=== PATIENT | male | born 1935 | race Caucasian/White ===

== ENCOUNTER → 2018-07-01 00:44 | Outpatient (CLI) | payer MEDICARE, SELFPAY ==
--- NOTE | 2018-07-01 09:46 | DI.REPORT_ITS ---
SYMPTOMS/DIAGNOSIS: MULTINODULAR GOITER, E04.2 THYROID ULTRASOUND: Thyroid ultrasound was performed according to the usual protocol. The right thyroid lobe measures 44 x 20 x 23 mm and left thyroid lobe measures 44 x 18 x 20 mm. The thyroid parenchyma is markedly heterogeneous with numerous nodules present bilaterally. The largest nodules are 23 mm nodule of the mid pole of the right thyroid lobe and a 18 mm in diameter right lower pole thyroid nodule, these appear grossly unchanged from previous study of 06/16/16. CONCLUSION: Findings consistent with multinodular goiter, stable appearance of the largest nodules since June 2016 is noted.
== END ==
PROVIDERS: PCP Emergency Medicine; Visit Provider Otolaryngology
DX: E04.2 Nontoxic multinodular goiter (principal)
CPT/HCPCS: 76536

== ENCOUNTER 2018-10-25 13:03 | Outpatient (CLI) | payer MEDICARE, SELFPAY ==
--- NOTE | 2018-10-25 13:08 | DI.RAD_ITS ---
SYMPTOM/DIAGNOSIS: BACK PAIN, M54.9, DORSALGIA LUMBAR SPINE: Comparison is made with 04/12/15. The exam is limited by overlying stool and bowel gas on the AP and oblique views. There is a stable moderate to severe compression fracture of T 12. There is a stable degenerative scoliosis. No new compression fractures are seen. Degenerative disc changes and facet degenerative changes are again noted. There has been no significant change. The aorta is calcified and normal in diameter. A pacemaker and gallstones are noted. There has been a previous lower anterior abdominal wall hernia repair. IMPRESSION: Stable T 12 compression fracture. Stable severe degenerative changes and scoliosis of the lumbar spine.
[2018-10-25 13:27] LABS: Abs Immature Grans 0.01 k/cumm (0.0-0.09); Absolute Basophil Count 0.01 k/cumm (0.0-0.2); Absolute Eosinophil Count 0.12 k/cumm (0.0-0.7); Absolute Lymphocyte Count 1.63 k/cumm (1.2-3.4); Absolute Monocyte Count 0.76 k/cumm (0.11-0.7); Absolute Neutrophil Count 4.75 k/cumm (1.2-6.7); Basophils % 0.1; Eosinophils % 1.6; HCT 40.2 % (40.0-50.0); HGB 13.4 g/dL (13.5-17.5); Immature Grans % 0.1; Lymphocytes % 22.4; Mean Corp. HGB Concentration 33.3 g/dL (32.0-36.0); Mean Corpuscular Hemoglobin 30.7 pg (27.0-33.0); Mean Platelet Volume 9.7 fL (8.0-11.0); Monocytes % 10.4; Neutrophils % 65.4; Platelet Count 290 x1000/uL (130-400); RBC 4.37 m/cumm (4.50-6.00); RBC Distribution Width 13.4 % (11.8-14.1); White Blood Cell Count 7.28 k/cumm (4.4-10.8)
[2018-10-25 14:22] LABS: ALT 22 U/L (12-78); AST 23 U/L (15-37); Albumin 3.7 g/dL (3.4-5.0); Alkaline Phosphatase 115 U/L (46-116); Anion Gap 7.4 mmol/L (3-11); BUN 23 mg/dL (7-18); Bilirubin, Total 0.2 mg/dL (0.2-1.0); CO2 30.6 mmol/L (21.0-32.0); CREATININE 1.02 mg/dL (0.70-1.30); Calcium 9.2 mg/dL (8.5-10.1); Chloride 101 mmol/L (98-107); Glucose 89 mg/dL (70-100); Potassium 3.7 mmol/L (3.5-5.1); Sodium 139 mmol/L (136-145); Total Protein 7.2 g/dL (6.4-8.2)
== END 2018-10-25 13:23 ==
PROVIDERS: PCP Emergency Medicine; Visit Provider Internal Medicine
DX: M54.5 Low back pain (principal); M51.36 Other intervertebral disc degeneration, lumbar region; M48.54XD Collapsed vertebra, not elsewhere classified, thoracic region, subsequent encounter for fracture with routine healing
CPT/HCPCS: 80053; 72110; 85025

== ENCOUNTER → 2018-11-23 09:54 | Outpatient (BNVA) | payer MEDICARE, SELFPAY | PROVIDERS: PCP Emergency Medicine; Visit Provider Nurse Practitioner Family | DX: I49.5 Sick sinus syndrome (principal); E78.5 Hyperlipidemia, unspecified; I10 Essential (primary) hypertension; Z45.02 Encounter for adjustment and management of automatic implantable cardiac defibrillator | CPT/HCPCS: 93280; 99213 ==

== ENCOUNTER → 2019-01-17 10:27 | Outpatient (BNVA) | payer MEDICARE, SELFPAY | PROVIDERS: PCP Emergency Medicine; Referring Provider Emergency Medicine; Visit Provider Surgery | DX: L72.3 Sebaceous cyst (principal); L08.9 Local infection of the skin and subcutaneous tissue, unspecified; I10 Essential (primary) hypertension | CPT/HCPCS: 99211; 99214 ==

== ENCOUNTER 2019-01-21 06:36 | Day surgery (SDC) | payer MEDICARE, SELFPAY ==
[2019-01-21 07:33] VITALS: BP 156/104; PULSE 87; RESP 16; TEMP 36.7; O2SAT 99
--- NOTE | 2019-01-21 09:20 | SKI_PTH ---
PATIENT: NITESH MONTANA LOC: [facility] U#:[id number] AGE/SX: 83/M ROOM: RE01/21/[address]: Starla Felix : 1935 BED: DIS: 01/21/2019 SPEC #: [id number] RECD: 01/21/19 12:58 STATUS: LOTTIE REQ #: [id number] MENDOZA: 01/21/19 09:[address]: Starla Felix DEPT: Surgical Specimen RECD BY: Janelle Malik ENTERED: 01/21/19 12:59 SP TYPE: BREA CARY DR: Jaime Higgins DO Tissues: 1 - SKIN CYST/TAG/DEBRIDEMENT Procedures: SKIN BIOPSY LEVEL 3 Comments: [id number]
[2019-01-21] MEDS: Lidocaine 1% Multi-Dose 50 ML VIAL (09:43)
--- NOTE | 2019-01-27 19:30 | ROE_ITS ---
DATE OF PROCEDURE: January 21, 2019 PREOPERATIVE DIAGNOSIS: Sebaceous cyst x2, infected sebaceous cyst x1. POSTOPERATIVE DIAGNOSIS: Same. PROCEDURE: Excision of cysts x3. SURGEON: Starla Felix D.O. ANESTHESIA: Local. ESTIMATED BLOOD LOSS: 10 cc. COMPLICATIONS: The patient tolerated the procedure well without complication. HISTORY: Mr. Estrada is an 83-year-old male seen at the request of Dr. Higgins regarding sebaceous cysts x3. One of them is infected, the one near the left shoulder, and he is here today for removal. Informed consent was obtained, explaining the risks and benefits of the procedure including, but not limited to, bleeding, infection, pneumonia, blood clots, needing to do packing, and needing to heal by secondary intent. The patient was marked in Preop. He agreed to surgery. He did receive preoperative antibiotics and will go home on antibiotics. The one on the left shoulder is red and inflamed. PROCEDURE: The patient was brought to the Procedure Room and placed in the supine position. A time-out was performed. He was prepped and draped in the usual sterile fashion using Betadine scrub solution. One percent lidocaine with epinephrine was used for local anesthetization. The posterior back lesion nearest to the right shoulder was attended to first. This was anesthetized with 10 cc of local. A #12 blade was used to make a 1-inch incision over the lesion. The lesion was dissected out. This lesion was 1.5 x 1.5 inches. It was dissected out completely. The capsule was removed. It was irrigated. The deep tissue was approximated with #3-0 Vicryl and the skin was approximated with #3-0 nylon in an interrupted fashion. There was a lesion in the middle that was 1 x 1 in. These lesion was attended to in the same fashion. It was again closed with #3-0 nylon sutures and #3-0 Vicryl in the deep tissue. The lesion on the posterior back nearest to the left shoulder was infected. This lesion was opened up. There was a little bit of purulent drainage. The cyst was dissected out and there was a small bit of necrotic tissue that was excised as well. In all of the cysts all of the capsule was removed and all nonviable tissue was removed. This, again, was copiously irrigated. It was closed proximally and distally and the center portion was left open and packed with a gauze. Sterile compression dressings were applied. The patient tolerated the procedure well and was transferred to the Recovery Room in stable condition. The patient does have a friend who can help him out doing dressings changes at home. The packing will need to be removed in 24 hours. He can just put gauze over the wounds and he does not have to pack it any further. He will be discharged home with a prescription for Ultram and a prescription for clindamycin. He was given instructions in wound care and activity. I will see him back on Thursday in follow-up. Thank you for allowing me to participate in the care of this patient. cc: Jaime Higgins D.O.
== END 2019-01-21 10:53 | disposition home or self-care (01) ==
PROVIDERS: PCP Emergency Medicine; Visit Provider Surgery
PROC: (CPT 11403; principal; 2019-01-21 09:15)
DX: L72.3 Sebaceous cyst (principal); L08.89 Other specified local infections of the skin and subcutaneous tissue
CPT/HCPCS: 11403 ×2; 12032; 88304

== ENCOUNTER → 2019-01-24 15:29 | Outpatient (BNVA) | payer MEDICARE, SELFPAY | PROVIDERS: PCP Emergency Medicine; Referring Provider Emergency Medicine; Visit Provider Surgery | DX: L72.3 Sebaceous cyst (principal); L08.89 Other specified local infections of the skin and subcutaneous tissue ==

== ENCOUNTER → 2019-01-31 15:28 | Outpatient (BNVA) | payer MEDICARE, SELFPAY | PROVIDERS: PCP Emergency Medicine; Referring Provider Emergency Medicine; Visit Provider Surgery | DX: Z48.817 Encounter for surgical aftercare following surgery on the skin and subcutaneous tissue (principal); L72.3 Sebaceous cyst; Z48.02 Encounter for removal of sutures; I10 Essential (primary) hypertension ==

== ENCOUNTER 2019-03-01 13:12 | Inpatient (IN) | payer MEDICARE, SELFPAY ==
[2019-03-01] VITALS (37 sets, daily range): BP systolic 115–154; BP diastolic 55–123; PULSE 85–118; RESP 16–32; TEMP 36.3–37.1; O2SAT 91–100
--- NOTE | 2019-03-01 13:19 | W.ED.GENAD ---
Discharge Plan Disposition Patient Disposition: [facility] INPATIENT Condition: Fair Discharge Details Chief Complaint: GenMedical Clinical Impression: CAP (community acquired pneumonia) Primary Care Provider: Jaime Higgins ED Provider: Hernan Sanchez [place] Meds and New Rx's Prescriptions: No Action cyclobenzaprine 7.5 mg tablet 7.5 mg PO TID Qty: 60 RF: 3 docusate sodium [Colace] 100 MG capsule 2 cap PO DAILY Qty: 180 RF: 4 multivitamin 1 EACH capsule 1 ea PO DAILY RF: 0 magnesium citrate 100 MG tablet 3 tab PO DAILY Qty: 450 RF: 4 TYLENOL ARTHRITIS 650 MG TABLET.ER 650 mg PO DAILY PRN RF: 0 aspirin 325 MG tablet 325 mg PO DAILY RF: 0 pravastatin [Pravachol] 20 MG tablet 20 mg PO DAILY Qty: 90 RF: 3 sildenafil [Viagra] 100 MG tablet 0.5 tab PO PRN Qty: 12 RF: 4 amlodipine 10 MG tablet 10 mg PO DAILY Qty: 90 RF: 3 hydrochlorothiazide 25 mg tablet 25 mg PO DAILY Qty: 90 RF: 4 lisinopril 20 mg tablet 20 mg PO DAILY Qty: 90 RF: 4 hydrocodone-acetaminophen [[place]] 5-325 mg tablet 1 tab PO Q4H PRN (Reason: pain) Qty: 10 RF: 0 Medical Decision Making Patient here with complaint of general weakness, lack of appetite, fatigue and cough. He is mildly tachycardic and mucous membranes are a little dry. He reports not eating and drinking well over the last few days. Lungs are clear and saturations are normal. Belly is benign. Neurologically somewhat difficult to follow but I think it is due to his word finding/speech problems have been documented in the primary care's notes. He otherwise is non-focal. EKG with nothing acute. We will place an IV and give a liter of fluid. Will check a chest x-ray, urinalysis, laboratory studies. Patient's laboratory studies with a white count of 15. Normal hemoglobin. Chemistries suggest a little dehydration with low sodium and chloride. BUN a little up but not significantly so from baseline. Magnesium a little low at 1.5 and this is being replaced. Liver function normal other than alk phos at 258. Troponin is negative. Chest x-ray per radiology suggestive of a right upper lobe infiltrate. Based on both CURB 65 and PSI, patient should be admitted for observation and management. Discussed this with patient. Agrees with admit. Continue fluids and will give ceftiaxone and azithromycin for CAP. Discuss with hospitalist. Accepted for admission. Medical Records Medical records reviewed: Yes I reviewed the patient's medical records. Lab Data Lab results reviewed: Yes I reviewed the patient's lab results. ECG Data Attestation: I personally reviewed and interpreted this ECG (s) as follows: Prior ECG tracings: not available for review Interpretation: Sinus tachycardia at a rate of 100. Occasional PAC. Right bundle branch block present. No acute ST elevation or depression noted. HPI General Mode of arrival: ambulatory. Date/Time Provider Initiated Documentation: 03/01/19 13:12. Limitations to Documentation: no limitations. Information obtained by: patient and old records reviewed. HPI Narrative: Patient presents to ED with complaint of generalized weakness, fatigue, lack of appetite for the last few days. He has been sleeping a lot and has had no energy. He has nausea but no vomiting. He does not feel like eating or drinking much. He does report a cough but denies shortness of breath or chest pain. He denies any fever. He denies headache or URI symptoms. He denies UTI symptoms. He denies abdominal pain. He has back pain which is chronic at this point for which he has been seeing physical therapy for months. He has no new neurologic symptoms but has had a previous stroke with some residual deficits including speech problems. Related Data Home Medications Medication Instructions Recorded Confirmed Tylenol Arthritis 650 mg PO DAILY PRN 04/20/13 03/01/19 docusate sodium [Colace] 2 cap PO DAILY #180 tab-cap 04/20/13 03/01/19 magnesium citrate 3 tab PO DAILY #450 04/20/13 03/01/19 multivitamin 1 ea PO DAILY 04/20/13 03/01/19 aspirin 325 mg PO DAILY tab-cap 11/22/13 03/01/19 pravastatin [Pravachol] 20 mg PO DAILY #90 tab-cap 07/29/16 03/01/19 sildenafil [Viagra] 0.5 tab PO PRN #12 tab 09/16/17 03/01/19 amlodipine 10 mg PO DAILY #90 tab-cap 02/02/18 03/01/19 cyclobenzaprine 7.5 mg tablet 7.5 mg PO TID #60 tab 12/01/18 03/01/19 hydrocodone-acetaminophen [[place]] 1 tab PO Q4H PRN #10 tab 01/21/19 03/01/19 hydrochlorothiazide 25 mg tablet 25 mg PO DAILY #90 tab-cap 03/01/19 03/01/19 lisinopril 20 mg tablet 20 mg PO DAILY #90 tab-cap 03/01/19 03/01/19 Previous Rx's Medication Instructions Recorded sildenafil [Viagra] 0.5 tab PO PRN #12 tab 09/16/17 amlodipine 10 mg PO DAILY #90 tab-cap 02/02/18 cyclobenzaprine 7.5 mg tablet 7.5 mg PO TID #60 tab 12/01/18 hydrocodone-acetaminophen [[place]] 1 tab PO Q4H PRN #10 tab 01/21/19 hydrochlorothiazide 25 mg tablet 25 mg PO DAILY #90 tab-cap 03/01/19 lisinopril 20 mg tablet 20 mg PO DAILY #90 tab-cap 03/01/19 Allergies Allergy/AdvReac Type Severity Reaction Status Date / Time amoxicillin Allergy Unknown Skin Rash Verified 03/01/19 13:22 metoprolol Allergy Unknown Verified 03/01/19 13:22 Review of Systems Review of Systems 08/29 Review of Systems completed and is negative except as stated above in HPI (Systems reviewed: Const, Eyes, ENT, Resp, CV, GI, , MSK, Skin, Neuro) PFSH Medical History Expressive dysphasia (Chronic) Sebaceous cyst (Resolved) Epigastric hernia (Chronic) 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 (Chronic 06/01/14) Joint pain (Chronic 04/22/13) Hyperlipidemia (Chronic) Hearing loss (Chronic) Essential hypertension (Chronic 08/29/13) Change of voice (Chronic 11/12/17) Benign prostatic hyperplasia (Chronic) Acquired scoliosis (Chronic) Surgical History Dudley Fundoplication (Chronic) Pacemaker (Chronic ~11/2010) Extraction of cataract (Inactive) Opening of chest (Inactive 01/03/09) Repair of inguinal hernia (Inactive 04/04/09) Social History Smoking/Tobacco Use Status: Former Tobacco Use Alcohol Intake: never Drug use: Never 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 Afebrile. Normal saturations. Const: WDWN elderly male in NAD. HEENT: NC/AT. Normal facial exam. Mucosal membranes slightly dry. Eyes: Normal conjunctiva and sclera. Neck: Supple. Trachea midline. Lungs: Normal respiratory effort. Lungs are clear. Cor: RRR without murmur/gallop. Good radial pulses. Tachycardic. GI: Soft. NT/ND. No guarding or rebound. Back: No CVAT. Neuro: A+O x 3. CN grossly in tact. Good strength and no focal deficit. Some problems with word finding and giving history. Ext: No C/C/E. No deformity or tenderness. Skin: Warm and dry. Eczema type rash inside part of the left elbow.
--- NOTE | 2019-03-01 13:22 | ED.GENADUL_ITS ---
Discharge Plan Disposition Patient Disposition: [facility] INPATIENT Condition: Fair Discharge Details Chief Complaint: GenMedical Clinical Impression: CAP (community acquired pneumonia) Primary Care Provider: Jaime Higgins ED Provider: Hernan Sanchez [place] Meds and New Rx's Prescriptions: No Action cyclobenzaprine 7.5 mg tablet 7.5 mg PO TID Qty: 60 RF: 3 docusate sodium [Colace] 100 MG capsule 2 cap PO DAILY Qty: 180 RF: 4 multivitamin 1 EACH capsule 1 ea PO DAILY RF: 0 magnesium citrate 100 MG tablet 3 tab PO DAILY Qty: 450 RF: 4 TYLENOL ARTHRITIS 650 MG TABLET.ER 650 mg PO DAILY PRN RF: 0 aspirin 325 MG tablet 325 mg PO DAILY RF: 0 pravastatin [Pravachol] 20 MG tablet 20 mg PO DAILY Qty: 90 RF: 3 sildenafil [Viagra] 100 MG tablet 0.5 tab PO PRN Qty: 12 RF: 4 amlodipine 10 MG tablet 10 mg PO DAILY Qty: 90 RF: 3 hydrochlorothiazide 25 mg tablet 25 mg PO DAILY Qty: 90 RF: 4 lisinopril 20 mg tablet 20 mg PO DAILY Qty: 90 RF: 4 hydrocodone-acetaminophen [[place]] 5-325 mg tablet 1 tab PO Q4H PRN (Reason: pain) Qty: 10 RF: 0 Medical Decision Making Patient here with complaint of general weakness, lack of appetite, fatigue and cough. He is mildly tachycardic and mucous membranes are a little dry. He reports not eating and drinking well over the last few days. Lungs are clear and saturations are normal. Belly is benign. Neurologically somewhat difficult to follow but I think it is due to his word finding/speech problems have been documented in the primary care's notes. He otherwise is non-focal. EKG with nothing acute. We will place an IV and give a liter of fluid. Will check a chest x-ray, urinalysis, laboratory studies. Patient's laboratory studies with a white count of 15. Normal hemoglobin. Chemistries suggest a little dehydration with low sodium and chloride. BUN a little up but not significantly so from baseline. Magnesium a little low at 1.5 and this is being replaced. Liver function normal other than alk phos at 258. Troponin is negative. Chest x-ray per radiology suggestive of a right upper lobe infiltrate. Based on both CURB 65 and PSI, patient should be admitted for observation and management. Discussed this with patient. Agrees with admit. Continue fluids and will give ceftiaxone and azithromycin for CAP. Discuss with hospitalist. Accepted for admission. Medical Records Medical records reviewed: Yes I reviewed the patient's medical records. Lab Data Lab results reviewed: Yes I reviewed the patient's lab results. ECG Data Attestation: I personally reviewed and interpreted this ECG (s) as follows: Prior ECG tracings: not available for review Interpretation: Sinus tachycardia at a rate of 100. Occasional PAC. Right bundle branch block present. No acute ST elevation or depression noted. HPI General Mode of arrival: ambulatory . Date/Time Provider Initiated Documentation: 03/01/19 13:12 . Limitations to Documentation: no limitations . Information obtained by: patient and old records reviewed . HPI Narrative: Patient presents to ED with complaint of generalized weakness, fatigue, lack of appetite for the last few days. He has been sleeping a lot and has had no energy. He has nausea but no vomiting. He does not feel like eating or d rinking much. He does report a cough but denies shortness of breath or chest pain. He denies any fever. He denies headache or URI symptoms. He denies UTI symptoms. He denies abdominal pain. He has back pain which is chronic at this point for which he has been seeing physical therapy for months. He has no new neurologic symptoms but has had a previous stroke with some residual deficits including speech problems. Related Data Home Medications Medication Instructions Recorded Confirmed Tylenol Arthritis 650 mg PO DAILY PRN 04/20/13 03/01/19 docusate sodium [Colace] 2 cap PO DAILY #180 tab-cap 04/20/13 03/01/19 magnesium citrate 3 tab PO DAILY #450 04/20/13 03/01/19 multivitamin 1 ea PO DAILY 04/20/13 03/01/19 aspirin 325 mg PO DAILY tab-cap 11/22/13 03/01/19 pravastatin [Pravachol] 20 mg PO DAILY #90 tab-cap 07/29/16 03/01/19 sildenafil [Viagra] 0.5 tab PO PRN #12 tab 09/16/17 03/01/19 amlodipine 10 mg PO DAILY #90 tab-cap 02/02/18 03/01/19 cyclobenzaprine 7.5 mg tablet 7.5 mg PO TID #60 tab 12/01/18 03/01/19 hydrocodone-acetaminophen [[place]] 1 tab PO Q4H PRN #10 tab 01/21/19 03/01/19 hydrochlorothiazide 25 mg tablet 25 mg PO DAILY #90 tab-cap 03/01/19 03/01/19 lisinopril 20 mg tablet 20 mg PO DAILY #90 tab-cap 03/01/19 03/01/19 Previous Rx's Medication Instructions Recorded sildenafil [Viagra] 0.5 tab PO PRN #12 tab 09/16/17 amlodipine 10 mg PO DAILY #90 tab-cap 02/02/18 cyclobenzaprine 7.5 mg tablet 7.5 mg PO TID #60 tab 12/01/18 hydrocodone-acetaminophen [[place]] 1 tab PO Q4H PRN #10 tab 01/21/19 hydrochlorothiazide 25 mg tablet 25 mg PO DAILY #90 tab-cap 03/01/19 lisinopril 20 mg tablet 20 mg PO DAILY #90 tab-cap 03/01/19 Allergies Allergy/AdvReac Type Severity Reaction Status Date / Time amoxicillin Allergy Unknown Skin Rash Verified 03/01/19 13:22 metoprolol Allergy Unknown Verified 03/01/19 13:22 Review of Systems Review of Systems 08/29 Review of Systems completed and is negative except as stated above in HPI (Systems reviewed: Const, Eyes, ENT, Resp, CV, GI, , MSK, Skin, Neuro) PFSH Medical History Expressive dysphasia (Chronic) Sebaceous cyst (Resolved) Epigastric hernia (Chronic) 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 (Chronic 06/01/14) Joint pain (Chronic 04/22/13) Hyperlipidemia (Chronic) Hearing loss (Chronic) Essential hypertension (Chronic 08/29/13) Change of voice (Chronic 11/12/17) Benign prostatic hyperplasia (Chronic) Acquired scoliosis (Chronic) Surgical History Dudley Fundoplication (Chronic) Pacemaker (Chronic ~11/2010) Extraction of cataract (Inactive) Opening of chest (Inactive 01/03/09) Repair of inguinal hernia (Inactive 04/04/09) Social History Smoking/Tobacco Use Status: Former Tobacco Use Alcohol Intake: never Drug use: Never 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 Afebrile. Normal saturations. Const: WDWN elderly male in NAD. HEENT: NC/AT. Normal facial exam. Mucosal membranes slightly dry. Eyes: Normal conjunctiva and sclera. Neck: Supple. Trachea midline. Lungs: Normal respiratory effort. Lungs are clear. Cor: RRR without murmur/gallop. Good radial pulses. Tachycardic. GI: Soft. NT/ND. No guarding or rebound. Back: No CVAT. Neuro: A+O x 3. CN grossly in tact. Good strength and no focal deficit. Some problems with word finding and giving history. Ext: No C/C/E. No deformity or tenderness. Skin: Warm and dry. Eczema type rash inside part of the left elbow.
[2019-03-01 14:00] LABS: Abs Immature Grans 0.08 k/cumm (0.0-0.09); Absolute Basophil Count 0.03 k/cumm (0.0-0.2); Absolute Eosinophil Count 3.67 k/cumm (0.0-0.7); Basophils % 0.2; Eosinophils % 26.1; HCT 40.8 % (40.0-50.0); HGB 13.9 g/dL (13.5-17.5); Immature Grans % 0.6; Mean Corp. HGB Concentration 34.1 g/dL (32.0-36.0); Mean Corpuscular Hemoglobin 30.9 pg (27.0-33.0); Mean Corpuscular Volume 90.7 fL (80-95); Mean Platelet Volume 9.6 fL (8.0-11.0); Monocytes % 9.7; Neutrophils % 56.4; Platelet Count 231 x1000/uL (130-400); RBC Distribution Width 13.5 % (11.8-14.1); White Blood Cell Count 14.07 k/cumm (4.4-10.8)
[2019-03-01] MEDS: Normal Saline 1,000 ML 1000 ML IV (14:11)
[2019-03-01 14:15] LABS: ALT 28 U/L (12-78); AST 20 U/L (15-37); Albumin 3.5 g/dL (3.4-5.0); Alkaline Phosphatase 258 U/L (46-116); Anion Gap 9.2 mmol/L (3-11); BUN 21 mg/dL (7-18); Bilirubin, Total 0.5 mg/dL (0.2-1.0); CO2 27.8 mmol/L (21.0-32.0); CREATININE 1.14 mg/dL (0.70-1.30); Chloride 94 mmol/L (98-107); Glucose 125 mg/dL (70-100); Magnesium 1.5 mg/dL (1.8-2.4); Potassium 3.5 mmol/L (3.5-5.1); Sodium 131 mmol/L (136-145); Total Protein 7.8 g/dL (6.4-8.2)
[2019-03-01 14:23] LABS: Absolute Lymphocyte Count 0.98 k/cumm (1.2-3.4); Absolute Monocyte Count 1.36 k/cumm (0.11-0.7); Absolute Neutrophil Count 7.94 k/cumm (1.2-6.7)
[2019-03-01 14:24] LABS: Diff Comment Agrees w/ Instrument
[2019-03-01 14:26] LABS: RBC Morphology Normal
--- NOTE | 2019-03-01 14:27 | DI.RAD_ITS ---
SYMPTOMS/DIAGNOSIS: COUGH PA AND LATERAL CHEST: Increased interstitial markings are demonstrated in the lungs and there is evidence of COPD. There are some ill-defined densities in the right upper lobe, which could certainly represent an acute pneumonitis. The appearance of the pulmonary vasculature would be consistent with pulmonary arterial hypertension. Note is made of atherosclerotic changes involving the aorta. SUMMARY: COPD. Apparent fibrotic changes of the lungs. Question right upper lobe pneumonia.
[2019-03-01 14:31] LABS: Troponin I < 0.02 ng/mL (0.00-0.06)
[2019-03-01] MEDS: MAGNESIUM SULFATE 2 GM/50 ML BAG IVPB (14:42)
[2019-03-01 15:07] LABS: Bilirubin Negative (Negative); Blood Negative (Negative); Clarity Clear; Glucose Negative (Negative); Ketones Trace mg/dL (Negative); Leukocyte Esterase Negative (Negative); Nitrite Negative (Negative); Specific Gravity 1.015 (1.005-1.025); Urobilinogen 0.2 EU/dL (Up TO 0.2)
[2019-03-01 15:21] LABS: Bacteria Negative HPF (Negative); C & S Indicated? No; Casts Negative LPF (Negative); Crystals Negative HPF (Negative); Epithelial Cells Negative HPF (Negative); Mucus Negative (Negative); Other Cells Negative (Negative); WBC 0-2 HPF (0-5)
[2019-03-01] MEDS: Potassium Chloride 20 MEQ TABCR 40 MEQ PO (16:11)
[2019-03-01] MEDS: Pantoprazole 40 MG VIAL IVP (16:11)
[2019-03-01] MEDS: cefTRIAXone 1 GM/50 ML BAG IVPB (16:15)
[2019-03-01] MEDS: AZITHROMYCIN 500 MG in Normal Saline 250 ML 250 MG IVPB (16:48)
[2019-03-01] MEDS: Normal Saline 1,000 ML 150 ML IV (16:48)
--- NOTE | 2019-03-01 17:48 | W.PM.HP.N ---
Date of service: 03/01/19 Time of Service: 17:48 Assessment and Plan (1) CAP (community acquired pneumonia): Current visit: Yes Status: Acute With RUL infiltrate on chest x-ray, leukocytosis, cough, fatigue and poor appetite. Initiate IV levaquin, oral steroids, supplemental oxygen as needed, nebulizer treatments as needed. IV fluid hydration overnight. Reassess CBC in the morning. 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 Denies swallowing difficulty. Consider speech evaluation, consider PT/OT if indicated. Continue aspirin, statin, blood pressure control. Heart healthy diet. (3) Expressive dysphasia: Current visit: No Status: Chronic As above. (4) Essential hypertension: Current visit: No Status: Chronic Continue home amlodipine, hold hydrochlorothiazide and lisinopril in the setting of dehydration. (5) Hyperlipidemia: Current visit: No Status: Chronic Continue statin. (6) Pain: Current visit: Yes Status: Acute Continue home regimen with [place]. Aqua K shamir for comfort. (7) DVT prophylaxis: Current visit: Yes Status: Acute Subcutaneous Lovenox. (8) Discharge planning issues: Current visit: Yes Status: Acute He is a full code. This case is discussed with Dr. Redmond who is in agreement. History of Present Illness Chief Complaint: Cough, fatigue, generalized weakness Narrative: Mr. Estrada is a very pleasant 83 year old man with a past medical history significant for CVA with residual expressive dysphasia, Hyperlipidemia, HTN, BPH, and bradycardia with pacemaker who presented to the ED today due to significant fatigue, generalized weakness, progressively worsening cough and poor appetite. In the ED, he had an EKG that revealed sinus tachycardia, occasional PAC. Right bundle branch block present. No acute ST elevation or depression noted. He had leukocytosis with a white blood cell count of 14.07, hyponatremia with sodium of 131, and chloride 94. His BUN is elevated at 21, creatinine higher than previous at 1.14. He received Magnesium replacement for a magnesium level of 1.5. His chest x-ray revealed suggestive of RUL infiltrate. He received IV fluids and IV antibiotics. He is admitted to the Med/surg floor for further evaluation and management. He reports that he was becoming more weak and fatigued at home, he was only eating and drinking small amounts due to lack of appetite, he has a nonproductive cough, he occasionally feels wheezy, he is not short of breath. He denies dizziness, chest pain/pressure, palpitations, he had some nausea without vomiting, no diarrhea, his bowels have been functioning normally. He denies dysuria, hematuria, frequency or urgency. He has chronic right sciatic pain, no increase in pain. 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 Father No problems noted. 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 Frequency: 1-2 times per week Additional Social history: Hard or hearing (b/l aides) Meds Home Medications Medication Instructions Recorded Confirmed Type Tylenol Arthritis 650 mg PO DAILY PRN 04/20/13 03/01/19 History docusate sodium [Colace] 2 cap PO DAILY #180 tab-cap 04/20/13 03/01/19 History magnesium citrate 3 tab PO DAILY #450 04/20/13 03/01/19 History multivitamin 1 ea PO DAILY 04/20/13 03/01/19 History aspirin 325 mg PO DAILY tab-cap 11/22/13 03/01/19 History pravastatin [Pravachol] 20 mg PO DAILY #90 tab-cap 07/29/16 03/01/19 History sildenafil [Viagra] 0.5 tab PO PRN #12 tab 09/16/17 03/01/19 Rx amlodipine 10 mg PO DAILY #90 tab-cap 02/02/18 03/01/19 Rx cyclobenzaprine 7.5 mg tablet 7.5 mg PO TID #60 tab 12/01/18 03/01/19 Rx hydrocodone-acetaminophen [[place]] 1 tab PO Q4H PRN #10 tab 01/21/19 03/01/19 Rx hydrochlorothiazide 25 mg tablet 25 mg PO DAILY #90 tab-cap 03/01/19 03/01/19 Rx lisinopril 20 mg tablet 20 mg PO DAILY #90 tab-cap 03/01/19 03/01/19 Rx Allergies Allergy/AdvReac Type Severity Reaction Status Date / Time amoxicillin Allergy Unknown Skin Rash Verified 03/01/19 13:22 metoprolol Allergy Unknown Verified 03/01/19 13:22 Exam Narrative Exam Narrative: General: Appears younger than stated age, laying in bed, in NAD. HEENT: [place] with bilateral hearing aids, pupils equal and round, EOMI. Neck: supple, no JVD. Respiratory: Respirations even and unlabored, lung sounds diminished throughout with rales to right base, expiratory wheezing with prolonged expiratory phase. Cardiovascular: regular rate and rhythm, tachycardic, no murmur appreciated. Gastrointestinal: normoactive bowel sounds throughout, soft, nontender, nondistended. Extremites: no clubbing, cyanosis or edema. Results Labs : 03/01/19 13:50 03/01/19 13:50 Laboratory Results - last 24 hr 03/01/19 03/01/19 03/01/19 13:50 13:50 15:00 WBC 14.07 H RBC 4.50 Hgb 13.9 Hct 40.8 MCV 90.7 MCH 30.9 MCHC 34.1 RDW 13.5 Plt Count 231 MPV 9.6 Immature Gran % 0.6 Neutrophils % 56.4 Lymphocytes % 7.0 Monocytes % 9.7 Eosinophils % 26.1 Basophils % 0.2 Absolute Neutrophils 7.94 H Absolute Lymphocytes 0.98 L Absolute Monocytes 1.36 H Absolute Eosinophils 3.67 H Absolute Basophils 0.03 Differential Comment Agrees w/ instrument RBC Morphology Normal Sodium 131 L Potassium 3.5 Chloride 94 L Carbon Dioxide 27.8 Anion Gap 9.2 BUN 21 H Creatinine 1.14 Estimated GFR/1.73 m2 >= 60.00 Glucose 125 H Calcium 9.0 Magnesium 1.5 L Total Bilirubin 0.5 AST 20 ALT 28 Alkaline Phosphatase 258 H Troponin I < 0.02 Total Protein 7.8 Albumin 3.5 Urine Color Yellow Urine Clarity Clear Urine pH 6.0 Ur Specific [place] 1.015 Urine Protein 30 H Urine Ketones Trace H Urine Blood Negative Urine Nitrite Negative Urine Bilirubin Negative Urine Urobilinogen 0.2 Ur Leukocyte Esterase Negative Urine RBC 3-5 H Urine WBC 0-2 Ur Epithelial Cells Negative Urine Crystals Negative Urine Bacteria Negative Urine Casts Negative Urine Mucus Negative Urine Other Negative Ur Culture Indicated? No Urine Glucose Negative Last Vital Signs Temp 36.5 C 03/01/19 17:04 Pulse 91 H 03/01/19 17:04 Resp 25 H 03/01/19 17:04 BP 154/110 H 03/01/19 17:04 Pulse Ox 93 L 03/01/19 17:04
[2019-03-01] MEDS: levoFLOXacin 750 MG/150 ML BAG 100 MG IVPB (18:25)
[2019-03-01] MEDS: predniSONE 20 MG TAB 40 MG PO (18:26)
[2019-03-01] MEDS: Normal Saline 1,000 ML 125 ML IV ×2 (19:14→23:35)
[2019-03-02] MEDS: Normal Saline 1,000 ML 125 ML IV (06:38)
[2019-03-02 07:09] LABS: Abs Immature Grans 0.05 k/cumm (0.0-0.09); Absolute Basophil Count 0.03 k/cumm (0.0-0.2); Absolute Eosinophil Count 0.56 k/cumm (0.0-0.7); Absolute Monocyte Count 0.34 k/cumm (0.11-0.7); Absolute Neutrophil Count 6.76 k/cumm (1.2-6.7); Basophils % 0.3; Eosinophils % 6.4; HCT 41.4 % (40.0-50.0); HGB 13.7 g/dL (13.5-17.5); Immature Grans % 0.6; Lymphocytes % 11.4; Mean Corp. HGB Concentration 33.1 g/dL (32.0-36.0); Mean Corpuscular Hemoglobin 30.2 pg (27.0-33.0); Mean Corpuscular Volume 91.2 fL (80-95); Mean Platelet Volume 10.3 fL (8.0-11.0); Monocytes % 3.9; Neutrophils % 77.4; Platelet Count 243 x1000/uL (130-400); RBC 4.54 m/cumm (4.50-6.00); RBC Distribution Width 13.6 % (11.8-14.1); White Blood Cell Count 8.74 k/cumm (4.4-10.8)
[2019-03-02 07:10] LABS: Anion Gap 9.4 mmol/L (3-11); BUN 16 mg/dL (7-18); CO2 26.6 mmol/L (21.0-32.0); CREATININE 0.85 mg/dL (0.70-1.30); Calcium 8.6 mg/dL (8.5-10.1); Chloride 101 mmol/L (98-107); Glucose 116 mg/dL (70-100); Magnesium 1.8 mg/dL (1.8-2.4); Potassium 3.9 mmol/L (3.5-5.1); Sodium 137 mmol/L (136-145)
[2019-03-02 07:20] VITALS: O2SAT 98
[2019-03-02 07:51] VITALS: BP 153/89; PULSE 95; RESP 20; TEMP 36.5; O2SAT 97
[2019-03-02] MEDS: Aspirin 325 MG TAB PO (08:20)
[2019-03-02] MEDS: Multivitamin TAB 1 TAB PO (08:21)
[2019-03-02] MEDS: amLODIPine 10 MG TAB PO (08:21)
[2019-03-02] MEDS: predniSONE 20 MG TAB 40 MG PO (08:21)
[2019-03-02] MEDS: Docusate Sodium 100 MG CAP 200 MG PO (08:21)
--- NOTE | 2019-03-02 08:40 | PDOC.CMIN ---
Care Management Initial Assess REASON FOR HOSPITALIZATION:: Pneumonia PAST MEDICAL HISTORY/PAST SURGICAL HISTORY:: Aquired scoliosis, benign prostatic hyperplasia, epigastric hernia, CVA with residual expressive dysphasia, [place], hyperlipidemia, joint pain, non toxic multinodular goiter, presbylarynges, sebaceous cyst, stroke, extraction of cataract, yokasta fundoplication, opening of chest, pacemaker, repair of inguinal hernia PREVIOUS FUNCTIONAL STATUS/SOCIAL/FAMILY SUPPORTS:: Keny resides independently in [place], [place]. He has two supportive friends; Han and Teddy who reside nearby. At baseline he is independent with ADLs in the community. CURRENT FUNCTIONAL STATUS:: Keny was lying in bed, pleasant in interaction and forthcoming with information. ADVANCE DIRECTIVES:: None on file. Has patient been provided with information about the portal?: Yes Did the patient sign up for the portal?: No CODE STATUS:: Full Code INSURANCE COVERAGE / FINANCIAL ISSUES:: Medicare CURRENT HOME/COMMUNITY SERVICES/EQUIPMENT:: [facility], [employer], outpatient [facility] exercise class. PRIMARY CARE PHYSICIAN:: Jaime Higgins, POTENTIAL DISCHARGE NEEDS:: Follow up appointment with PCP. PATIENT/FAMILY EDUCATION NEEDS:: Review discharge instructions, discuss Ask Me [employer]. ANTICIPATED BARRIERS TO DISCHARGE:: None identified. TRANSPORTATION:: Via private vehicle with one of his friends. PLAN:: Keny will continue to be monitored and treated for Pneumonia. He will return home with no additional services anticipated at this time. He will follow up with his PCP and transport home via private vehicle with his friend.
[2019-03-02] MEDS: Magnesium Oxide 400 MG TAB PO (10:19)
[2019-03-02] MEDS: Potassium Chloride 20 MEQ TABCR 40 MEQ PO (10:19)
--- NOTE | 2019-03-02 12:54 | W.PM.DS.N ---
Date of service: 03/02/19 Time of Service: 12:54 DS: Diagnosis Discharge Diagnosis (1) CAP (community acquired pneumonia): Status: Acute (2) Stroke: Status: Chronic (3) Expressive dysphasia: Status: Chronic (4) Essential hypertension: Status: Chronic (5) Hyperlipidemia: Status: Chronic (6) Pain: Status: Acute Discharge Plan Disposition Patient Disposition: HOME Condition: Improving Discharge Details Reason For Visit: PNEUMONIA Admit Date/Time: 03/01/19 15:31 Admit Provider: Felice Redmond Attending Provider: Felice Redmond Primary Care Provider: Jaime Higgins [facility] Hospital Course: Mr. Estrada is a very pleasant 83 year old man with a past medical history significant for CVA with residual expressive dysphasia, Hyperlipidemia, HTN, BPH, and bradycardia with pacemaker who presented to the ED yesterday due to significant fatigue, generalized weakness, progressively worsening cough and poor appetite. In the ED, he had an EKG that revealed sinus tachycardia, occasional PAC, and right bundle branch block, with acute ST elevation or depression noted. He had leukocytosis with a white blood cell count of 14.07, hyponatremia with sodium of 131, and chloride 94. His BUN is elevated at 21, creatinine higher than previous at 1.14. He received Magnesium replacement for a magnesium level of 1.5. His chest x-ray revealed suggestive of RUL infiltrate. He received IV fluids and IV antibiotics. He was admitted to the Med/surg floor for further evaluation and management. His condition improved overnight. At the time of discharge, his appetite has returned, he does not feel short of breath, his weakness has improved, he denies wheezing, he continues to cough, his cough was productive of thin yellow sputum overnight. He feels markedly better. He has remained afebrile, he did not require oxygen supplementation. His renal function has improved. His white blood cell count, sodium, chloride and magnesium nomalized. He is eager for discharge. He will be discharged home to complete a course of levaquin with a prednisone burst. He will have an albuterol inhaler for shortness of breath and/or wheezing. He will follow up with his PCP in one week. Home Meds and New Rx's Prescriptions: New omeprazole 40 mg capsule,delayed release(DR/EC) 40 mg PO DAILY Qty: 30 RF: 0 levofloxacin [Levaquin] 750 mg tablet 750 mg PO DAILY Qty: 4 RF: 0 prednisone 20 mg tablet 40 mg PO DAILY Qty: 6 RF: 0 Continued cyclobenzaprine 7.5 mg tablet 7.5 mg PO TID Qty: 60 RF: 3 docusate sodium [Colace] 100 MG capsule 2 cap PO DAILY Qty: 180 RF: 4 multivitamin 1 EACH capsule 1 ea PO DAILY RF: 0 magnesium citrate 100 MG tablet 3 tab PO DAILY Qty: 450 RF: 4 TYLENOL ARTHRITIS 650 MG TABLET.ER 650 mg PO DAILY PRN RF: 0 aspirin 325 MG tablet 325 mg PO DAILY RF: 0 pravastatin [Pravachol] 20 MG tablet 20 mg PO DAILY Qty: 90 RF: 3 sildenafil [Viagra] 100 MG tablet 0.5 tab PO PRN Qty: 12 RF: 4 amlodipine 10 MG tablet 10 mg PO DAILY Qty: 90 RF: 3 hydrochlorothiazide 25 mg tablet 25 mg PO DAILY Qty: 90 RF: 4 lisinopril 20 mg tablet 20 mg PO DAILY Qty: 90 RF: 4 hydrocodone-acetaminophen [[place]] 5-325 mg tablet 1 tab PO Q4H PRN (Reason: pain) Qty: 10 RF: 0 Discharge Instructions Instructions: Community Acquired Pneumonia (DC) Additional Instructions: Take antibiotics until they are gone (4 days). Take prednisone until it is gone (3 days). Resume your usual medications. Stand Alone Forms: Nursing Discharge Form Referrals: Jaime Higgins DO [Primary Care Provider] - 03/14/19 11:00 am Activity:: Activity as Tolerated Equipment/Supplies:: No Equipment Needed Diet:: Low Sodium Discharge Orders Discharge Orders: Discharge Order (Routine); Ordered 03/02/19 Ordered By: Shiela Crowder Exam Narrative Exam Narrative: General: Appears younger than stated age, laying in bed, in NAD. HEENT: [place] with bilateral hearing aids, pupils equal and round, EOMI. Neck: supple, no JVD. Respiratory: Respirations even and unlabored, lung sounds clear throughout. Cardiovascular: regular rate and rhythm, non-tachycardic, no murmur appreciated. Gastrointestinal: normoactive bowel sounds throughout, soft, nontender, nondistended. Extremites: no clubbing, cyanosis or edema. DS: Data Vitals/I&O Vitals and I&O: Vital Signs Temperature 36.5 C 03/02/19 07:51 Temperature Source Tympanic 03/02/19 07:51 Pulse 95 H 03/02/19 07:51 Pulse Rhythm Regular 03/02/19 11:45 Pulse 94 H 03/01/19 16:40 Respiratory Rate 20 03/02/19 07:51 Respiratory Effort Non-Labored 03/02/19 11:45 Respiratory Depth Normal 03/02/19 11:45 Respiratory Pattern Normal 03/02/19 11:45 Blood Pressure 153/89 H 03/02/19 07:51 Blood Pressure Mean 119 03/01/19 16:31 Blood Pressure Position Sitting 03/01/19 13:18 Pulse Oximetry 97 03/02/19 07:51 Oxygen Delivery Method Room Air 03/02/19 07:51 Oxygen Flow Rate 0 03/02/19 07:51 Pain Level 0 03/01/19 21:52 Intake & Output 03/01/19 03/02/19 03/02/19 23:59 11:59 23:59 Intake Total 2500 / 2500 2200 / 2200 Output Total 1375 / 1375 1850 / 1850 Balance 1125 / 1125 350 / 350 Weight 72.3 kg Intake: IV 2500 / 2500 1000 / 1000 Oral 1200 / 1200 Output: Urine 1375 / 1375 1850 / 1850 Other: Urine Color Yellow Yellow Urine Appearance Clear Clear Urine Odor None Stool Size Copious Stool Characteristics Soft Formed Brown Voiding Methods Urinal Urinal # Voids 3 Completed studies during hospitalization [Text1]: 03/01/19: PA AND LATERAL CHEST: Increased interstitial markings are demonstrated in the lungs and there is evidence of COPD. There are some ill-defined densities in the right upper lobe, which could certainly represent an acute pneumonitis. The appearance of the pulmonary vasculature would be consistent with pulmonary arterial hypertension. Note is made of atherosclerotic changes involving the aorta. SUMMARY: COPD. Apparent fibrotic changes of the lungs. Question right upper lobe pneumonia. Labs on day of discharge: Labs from last 24 hours 03/02/19 03/02/19 03/01/19 06:22 06:22 15:00 WBC 8.74 D RBC 4.54 Hgb 13.7 Hct 41.4 MCV 91.2 MCH 30.2 MCHC 33.1 RDW 13.6 Plt Count 243 MPV 10.3 Immature Gran % 0.6 Neutrophils % 77.4 Lymphocytes % 11.4 Monocytes % 3.9 Eosinophils % 6.4 Basophils % 0.3 Absolute Neutrophils 6.76 H Absolute Lymphocytes 1.00 L Absolute Monocytes 0.34 Absolute Eosinophils 0.56 Absolute Basophils 0.03 Differential Comment RBC Morphology Sodium 137 Potassium 3.9 Chloride 101 Carbon Dioxide 26.6 Anion Gap 9.4 BUN 16 Creatinine 0.85 Estimated GFR/1.73 m2 >= 60.00 Glucose 116 H Calcium 8.6 Magnesium 1.8 Total Bilirubin AST ALT Alkaline Phosphatase Troponin I Total Protein Albumin Urine Color Yellow Urine Clarity Clear Urine pH 6.0 Ur Specific [place] 1.015 Urine Protein 30 H Urine Ketones Trace H Urine Blood Negative Urine Nitrite Negative Urine Bilirubin Negative Urine Urobilinogen 0.2 Ur Leukocyte Esterase Negative Urine RBC 3-5 H Urine WBC 0-2 Ur Epithelial Cells Negative Urine Crystals Negative Urine Bacteria Negative Urine Casts Negative Urine Mucus Negative Urine Other Negative Ur Culture Indicated? No Urine Glucose Negative 03/01/19 03/01/19 13:50 13:50 WBC 14.07 H RBC 4.50 Hgb 13.9 Hct 40.8 MCV 90.7 MCH 30.9 MCHC 34.1 RDW 13.5 Plt Count 231 MPV 9.6 Immature Gran % 0.6 Neutrophils % 56.4 Lymphocytes % 7.0 Monocytes % 9.7 Eosinophils % 26.1 Basophils % 0.2 Absolute Neutrophils 7.94 H Absolute Lymphocytes 0.98 L Absolute Monocytes 1.36 H Absolute Eosinophils 3.67 H Absolute Basophils 0.03 Differential Comment Agrees w/ instrument RBC Morphology Normal Sodium 131 L Potassium 3.5 Chloride 94 L Carbon Dioxide 27.8 Anion Gap 9.2 BUN 21 H Creatinine 1.14 Estimated GFR/1.73 m2 >= 60.00 Glucose 125 H Calcium 9.0 Magnesium 1.5 L Total Bilirubin 0.5 AST 20 ALT 28 Alkaline Phosphatase 258 H Troponin I < 0.02 Total Protein 7.8 Albumin 3.5 Urine Color Urine Clarity Urine pH Ur Specific [place] Urine Protein Urine Ketones Urine Blood Urine Nitrite Urine Bilirubin Urine Urobilinogen Ur Leukocyte Esterase Urine RBC Urine WBC Ur Epithelial Cells Urine Crystals Urine Bacteria Urine Casts Urine Mucus Urine Other Ur Culture Indicated? 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 Father No problems noted. 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
== END 2019-03-02 14:03 | disposition home or self-care (01) | DRG 194 ==
LOC: ER 15:31 → MS 17:19
PROVIDERS: Admitting Provider Internal Medicine; Emergency Provider Emergency Medicine; PCP Emergency Medicine; Visit Provider Internal Medicine
DX: J18.9 Pneumonia, unspecified organism (principal); E87.1 Hypo-osmolality and hyponatremia; J44.0 Chronic obstructive pulmonary disease with (acute) lower respiratory infection; I69.321 Dysphasia following cerebral infarction; R53.1 Weakness; R53.83 Other fatigue; E83.42 Hypomagnesemia; R11.0 Nausea; I10 Essential (primary) hypertension; R00.1 Bradycardia, unspecified; E78.5 Hyperlipidemia, unspecified; Z95.0 Presence of cardiac pacemaker; Z87.891 Personal history of nicotine dependence
CPT/HCPCS: 36415; 80048; 80053; 93005; 96361; 96365; 96366; 96367; 96375; 99222; 99239; 99285; 71046; 81003; 81015; 83735; 84484; 85025; 93010; J0456; J0696; J1956; J7512

== ENCOUNTER 2019-03-16 09:31 | Outpatient (CLI) | payer MEDICARE, SELFPAY ==
[2019-03-16 11:18] LABS: Mean Corp. HGB Concentration 33.3 g/dL (32.0-36.0); Mean Corpuscular Hemoglobin 30.8 pg (27.0-33.0); Mean Corpuscular Volume 92.3 fL (80-95); Mean Platelet Volume 10.2 fL (8.0-11.0); Platelet Count 365 x1000/uL (130-400); RBC 4.55 m/cumm (4.50-6.00); White Blood Cell Count 10.22 k/cumm (4.4-10.8)
[2019-03-16 11:24] LABS: ALT 25 U/L (12-78); AST 23 U/L (15-37); Albumin 3.4 g/dL (3.4-5.0); Alkaline Phosphatase 242 U/L (46-116); Anion Gap 7.5 mmol/L (3-11); BUN 24 mg/dL (7-18); Bilirubin, Total 0.4 mg/dL (0.2-1.0); CO2 31.5 mmol/L (21.0-32.0); CREATININE 0.89 mg/dL (0.70-1.30); Calcium 8.9 mg/dL (8.5-10.1); Chloride 98 mmol/L (98-107); Glucose 96 mg/dL (70-100); Magnesium 2.1 mg/dL (1.8-2.4); Potassium 3.7 mmol/L (3.5-5.1); Sodium 137 mmol/L (136-145); Total Protein 7.6 g/dL (6.4-8.2)
[2019-03-16 15:06] LABS: GGT 43 U/L (15-85)
== END 2019-03-16 09:51 ==
PROVIDERS: PCP Emergency Medicine; Visit Provider Emergency Medicine
DX: J18.9 Pneumonia, unspecified organism (principal); E78.5 Hyperlipidemia, unspecified
CPT/HCPCS: 36415; 80053; 85027; 82977; 83735

== ENCOUNTER 2019-03-16 10:20 | Outpatient (CLI) | payer MEDICARE, SELFPAY ==
--- NOTE | 2019-03-16 09:45 | DI.RAD_ITS ---
SYMPTOM/DIAGNOSIS: F/U PNEUMONIA, J18.9 PA AND LATERAL CHEST: Comparison is made with 03/01/19. Heart size and pulmonary vasculature appear stable. The pacing wires are stable in position. The infiltrates seen in the lungs appear to have resolved compared to the prior examination. No new infiltrates, effusions or pneumothoraces are identified. There is persistent mild pleural thickening along the left lower lateral chest wall. The lungs appear hyperinflated with flattened diaphragms suggesting underlying COPD. There is a fluid level seen in the distal esophagus. IMPRESSION: 1. Resolution of the pulmonary infiltrates. 2. COPD. 3. Fluid level seen in the distal esophagus. If further evaluation is warranted, a barium swallow may be considered to exclude achalasia or other esophageal motility concerns.
== END 2019-03-16 10:40 ==
PROVIDERS: PCP Emergency Medicine; Visit Provider Emergency Medicine
DX: J18.9 Pneumonia, unspecified organism (principal); J44.9 Chronic obstructive pulmonary disease, unspecified; Z95.0 Presence of cardiac pacemaker; K22.8 Other specified diseases of esophagus
CPT/HCPCS: 36415; 80053; 85027; 71046; 82977; 83735

== ENCOUNTER 2019-03-25 01:59 | Outpatient (CLI) | payer MEDICARE, SELFPAY ==
[2019-03-25] MEDS: Breeza Beverage 473 ML BTL PO ×2 (08:24→08:25)
[2019-03-25] MEDS: Omnipaque 350 MG/ML 50 ML BTL IJ (08:24)
[2019-03-25] MEDS: Omnipaque 350 MG/ML 100 ML BTL IJ (10:14)
[2019-03-25] MEDS: Normal Saline Flush 10 ML SYR IVP (10:15)
--- NOTE | 2019-03-25 10:27 | DI.CT_ITS ---
SYMPTOMS/DIAGNOSIS: ABNORMAL CHEST X-RAY AND ELEVATED ALK PHOS, R93.[address]: CT examination of the abdomen and pelvis was performed with a bolus infusion of 100 cc of Omnipaque 350 and ingestion of dilute barium. Note is made of severe degenerative changes of the lumbar spine and a T12 compression fracture, unchanged from previous CT of 05/08/15. There are multiple calcified pleural plaques consistent with prior asbestos exposure. Otherwise, the visualized portions of the lungs are generally clear. The esophagus is dilated and contrast filled to the level of the GE junction. The patient has reportedly had a prior Dudley procedure. There appears to be wall thickening associated with the GE junction and some irregularity of the mucosa appears to be present at this site, suspicious for GE junction carcinoma. Endoscopic correlation is recommended. There are numerous low attenuation homogeneous well-circumscribed hepatic lesions, consistent with cysts. No other focal hepatic abnormality seen. There is cholelithiasis with a very large laminated gallstone. The gallbladder wall is thickened, which may represent acute or chronic cholecystitis. There is a suspected stone in the common duct at the level of the head of the pancreas. The common duct measures about 12 mm in diameter at this site. Pancreatic duct is slightly dilated. Otherwise, the pancreas is unremarkable in appearance. Spleen appears normal. Adrenals and kidneys are unremarkable in appearance except for incidental presumed bilateral small renal cysts. Abdominal aorta is of normal diameter and no major vascular abnormality is seen. No significant abdominal wall hernia is seen. No gross abdominal or pelvic adenopathy is identified. The cecum appears to lie in the right upper quadrant. There is a large quantity of fecal material throughout the colon consistent with constipation. Appendix not specifically visualized. No gross inflammatory process identified. CONCLUSION: 1. 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 2. Multiple calcified pleural plaques consistent with asbestosis. 3. Large gallstone with findings suggesting chronically inflamed gallbladder, obstructing distal common duct stone also suspected; suspected stone versus mass measures 9 mm in diameter in a 12 mm dilated distal common bile duct. 4. Findings consistent with constipation.
== END 2019-03-25 02:19 ==
PROVIDERS: PCP Emergency Medicine; Visit Provider Emergency Medicine
DX: R93.89 Abnormal findings on diagnostic imaging of other specified body structures (principal); K22.8 Other specified diseases of esophagus; R74.8 Abnormal levels of other serum enzymes; K76.89 Other specified diseases of liver; K80.63 Calculus of gallbladder and bile duct with acute cholecystitis with obstruction; K59.00 Constipation, unspecified; Z77.090 Contact with and (suspected) exposure to asbestos
CPT/HCPCS: 74177; J3490; Q9967

== ENCOUNTER → 2019-03-29 12:38 | Outpatient (BNVA) | payer MEDICARE, SELFPAY | PROVIDERS: PCP Emergency Medicine; Referring Provider Emergency Medicine; Visit Provider Surgery | DX: R93.3 Abnormal findings on diagnostic imaging of other parts of digestive tract (principal); K21.9 Gastro-esophageal reflux disease without esophagitis; Z98.890 Other specified postprocedural states | CPT/HCPCS: 99213 ==

== ENCOUNTER 2019-04-04 07:08 | Day surgery (SDC) | payer MEDICARE, SELFPAY ==
--- NOTE | 2019-04-04 06:44 | W.PM.ENDDOP ---
Date of service: 04/04/19 Time of Service: 09:12 Endoscopy Report DATE OF PROCEDURE: 04/04/19 PRE-OP DIAGNOSIS: Abnormal CT scan POST-OP DIAGNOSIS: other (Hiatal hernia, severe esophagitis) PROCEDURE: EGD with bx SURGEON: Yen Ramsay ANESTHESIA: other (General/ ASA 2 / Ej [place] CRNA) ESTIMATED BLOOD LOSS: 3 PATHOLOGY: other (Esophageal bx at 35, 32 and 30 cm) COMPLICATIONS: None DISPOSITION: no change INDICATIONS: Mr. Estrada is a pleasant 83 year old male seen in the office for an EGD. He had a CT scan done of his abdomen which showed some thickening and irregularity to the distal esophagus. The patient denies any dysphagia. Risks, benefits and complications have been reviewed. Complications include but are not limited to bleeding, pain, perforation, sore throat, aspiration, and adverse reaction to the medications. Questions were entertained and answered to their satisfaction and they wished to proceed. No guarantees were given or implied. PROCEDURE START TIME: :12 PROCEDURE END TIME: :24 FINDINGS: Severe esophagitis from 35 to 30 cm Hiatal hernia retained food noted with reflux of food from duodenum into stomach PROCEDURE DESCRIPTION: After informed consent was obtained the patient was take to the procedure room and placed in a supine position. Monitors were applied and a time out was done. The patients name, date of , procedure type, allergies to medications and metal in their body was reviewed. A bite block was placed and the patient was sedated. Once sedated and comfortable the gastroscope was advanced through the oropharynx which was grossly normal into the esophagus. The proximal and mid-esophagus to 30 cm were normal. In the distal esophagus there was severe esophagitis noted. The scope was advanced into the stomach and through the pylorus into the 3rd portion of the duodenum. The duodenum was noted to be normal. There was food noted in the duodenum that refluxed into the stomach. The scope was retracted back into the stomach and no inflammation was noted. There was food in the antrum as well. The scope was retroflexed. The cardia and fundus were noted to be normal. There was a hiatal hernia noted. The scope was retracted back into the esophagus and biopsies were done of the GE junction to rule out Starks's. The Z line was irregular. The GE junction was at 35 cm. It was hard to see the GE junction. Biopsies were done at 32 and 30 cm becaused of inflammation. The scope was removed and the patient was woken up and taken back to [facility] in stable condition. Follow up: with PCP in 2-3 weeks. Will start patient on Omeprazole 20 mg daily. depending on results may need follow up EGD in 6 months.
--- NOTE | 2019-04-04 06:46 | W.PM.DSUDISC ---
Discharge Plan Disposition Patient Disposition: HOME Condition: Good Discharge Details Reason For Visit: ABNORMAL CT Attending Provider: Yen Ramsay Primary Care Provider: Jaime Higgins Home Meds and New Rx's Prescriptions: New omeprazole 40 mg capsule,delayed release(DR/EC) 40 mg PO DAILY Qty: 30 RF: 5 Continued cyclobenzaprine 7.5 mg tablet 7.5 mg PO TID Qty: 60 RF: 3 docusate sodium [Colace] 100 MG capsule 2 cap PO DAILY Qty: 180 RF: 4 multivitamin 1 EACH capsule 1 ea PO DAILY RF: 0 magnesium citrate 100 MG tablet 3 tab PO DAILY Qty: 450 RF: 4 TYLENOL ARTHRITIS 650 MG TABLET.ER 650 mg PO DAILY PRN RF: 0 aspirin 325 MG tablet 325 mg PO DAILY RF: 0 pravastatin [Pravachol] 20 MG tablet 20 mg PO DAILY Qty: 90 RF: 3 sildenafil [Viagra] 100 MG tablet 0.5 tab PO PRN Qty: 12 RF: 4 amlodipine 10 MG tablet 10 mg PO DAILY Qty: 90 RF: 3 hydrochlorothiazide 25 mg tablet 25 mg PO DAILY Qty: 90 RF: 4 lisinopril 20 mg tablet 20 mg PO DAILY Qty: 90 RF: 4 hydrocodone-acetaminophen [Kimberly] 5-325 mg tablet 1 tab PO Q4H PRN (Reason: pain) Qty: 10 RF: 0 Discontinued omeprazole 40 mg capsule,delayed release(DR/EC) 40 mg PO DAILY Qty: 30 RF: 0 Discharge Instructions Instructions: Upper Endoscopy (DC), Hiatal Hernia (DC), Esophagitis (DC), Diet for Stomach Ulcers and Gastritis (GEN) Additional Instructions: Findings: Severe inflammation of the esophagus Hiatal Hernia Follow up: with PCP in 2-3 weeks Medications: Please restart Omeprazole 40 mg daily. A new prescription has been sent Please call if you develop: fevers >101.5 Nausea or Vomiting Abdominal pain that is not transient DAY SURGERY UNIT POST COLONOSCOPY INSTRUCTIONS 1. Because there will be medication in your system for the next 24 hours, you may feel a little sleepy. Your coordination will be affected. Therefore: a. Do not drive or operate dangerous equipment for 24 hours. b. Do not drink alcohol beverages for 24 hours (not even beer). c. Plan to go home and rest for the day. 2. Generally there are no restrictions on your activity after a day or so has gone by, but you may feel a bit fatigued for a few days. 3 After you arrive home you may have a light meal and return to a normal diet as you can tolerate it without feeling sick to your stomach. 4. After surgery, you may feel pain or discomfort. This should be only transient, but if it persists please contact your doctor. 5. If there are any questions regarding the findings of your procedure, please feel free to contact your doctor. 6. If you are unable to contact your doctor with a problem, contact the hospital at [phone]. 7. Continue all your regular medications unless directed otherwise. I understand the above instructions and have no questions. Signature of Patient or Responsible Adult Escort Date/Time Name of Responsible Adult Escort Signature of Nurse Date/Time Activity:: Activity as Tolerated Diet:: low acid Discharge Orders Discharge Orders: Discharge Order (Routine); Ordered 04/04/19 Ordered By: Yen Ramsay DS: Diagnosis Discharge Diagnosis (1) H/O esophagogastroduodenoscopy: Status: Chronic (2) Esophagitis: Status: Acute (3) Hiatal hernia: Status: Chronic
[2019-04-04 07:42] VITALS: BP 146/99; PULSE 92; RESP 18; TEMP 36.4; O2SAT 96
[2019-04-04] MEDS: Lactated Ringers 1,000 ML 80 ML IV (08:02)
--- NOTE | 2019-04-04 09:15 | BOWEL_PTH ---
PATIENT: NITESH MONTANA LOC: [facility] U#:[id number] AGE/SX: 83/M ROOM: RE04/04/[address]: Yen Ramsay MD : [id number] BED: DIS: 04/04/2019 SPEC #: [id number] RECD: 04/04/19 11:23 STATUS: LOTTIE REQ #: [id number] MENDOZA: 04/04/19 09:[address]: Yen Ramsay DEPT: Surgical Specimen RECD BY: Blaire Neal ENTERED: 04/04/19 11:24 SP TYPE: Bowel OTHR DR: Jaime Higgins DO Tissues: 1 - BIOPSY BOWEL 2 - BIOPSY BOWEL 3 - BIOPSY BOWEL Procedures: GROSS AND MICRO LEVEL 4 Comments: [id number]
[2019-04-04 09:53] VITALS: BP 108/70; PULSE 76; RESP 18; TEMP 36.4; O2SAT 98
== END 2019-04-04 10:21 | disposition home or self-care (01) ==
PROVIDERS: PCP Emergency Medicine; Visit Provider Surgery
PROC: 0DJ68ZZ Inspection of Stomach, Via Natural or Artificial Opening Endoscopic (ICD-10-PCS; CPT 43235; principal; 2019-04-04 08:30)
DX: R93.3 Abnormal findings on diagnostic imaging of other parts of digestive tract (principal); K22.710 Barrett's esophagus with low grade dysplasia; K21.0 Gastro-esophageal reflux disease with esophagitis; K44.9 Diaphragmatic hernia without obstruction or gangrene; I10 Essential (primary) hypertension
CPT/HCPCS: 43239; 88305

== ENCOUNTER → 2019-07-05 09:26 | Outpatient (BNVA) | payer MEDICARE, SELFPAY | PROVIDERS: PCP Emergency Medicine; Visit Provider Nurse Practitioner Family | DX: I49.5 Sick sinus syndrome (principal); I10 Essential (primary) hypertension; E78.5 Hyperlipidemia, unspecified; Z45.018 Encounter for adjustment and management of other part of cardiac pacemaker; I63.9 Cerebral infarction, unspecified; Z29.9 Encounter for prophylactic measures, unspecified | CPT/HCPCS: 93280; 99213 ==

== ENCOUNTER 2019-08-23 07:39 | Outpatient (CLI) | payer MEDICARE, SELFPAY ==
[2019-08-23 13:29] LABS: ALT 23 U/L (16-63); AST 25 U/L (15-37); Albumin 3.7 g/dL (3.4-5.0); Alkaline Phosphatase 139 U/L (46-116); Anion Gap 10.8 mmol/L (3-11); BUN 21 mg/dL (7-18); Bilirubin, Total 0.4 mg/dL (0.2-1.0); CO2 28.2 mmol/L (21.0-32.0); CREATININE 1.09 mg/dL (0.70-1.30); Calcium 8.8 mg/dL (8.5-10.1); Chloride 106 mmol/L (98-107); Glucose 116 mg/dL (70-100); Potassium 4.4 mmol/L (3.5-5.1); Sodium 145 mmol/L (136-145); Total Protein 7.3 g/dL (6.4-8.2)
[2019-08-23 13:46] LABS: GGT 34 U/L (15-85)
== END 2019-08-23 07:59 ==
PROVIDERS: PCP Emergency Medicine; Visit Provider Emergency Medicine
DX: E78.5 Hyperlipidemia, unspecified (principal); R89.9 Unspecified abnormal finding in specimens from other organs, systems and tissues
CPT/HCPCS: 36415; 80053; 82977